=== PATIENT | male | born 1930 | race Caucasian/White ===

== ENCOUNTER 2016-07-22 17:54 | Emergency (ER) | payer MEDICARE, OTHER | END 2016-07-23 00:15 | disposition home or self-care (01) | LOC: ER 17:54 | DX: T83.011A Breakdown (mechanical) of indwelling urethral catheter, initial encounter (principal); N40.0 Benign prostatic hyperplasia without lower urinary tract symptoms; I10 Essential (primary) hypertension; I51.9 Heart disease, unspecified; Z85.038 Personal history of other malignant neoplasm of large intestine; Z79.82 Long term (current) use of aspirin; Z79.899 Other long term (current) drug therapy; Z88.0 Allergy status to penicillin | CPT/HCPCS: 99070; 99282; 99283 ==

== ENCOUNTER 2016-08-06 12:02 | Emergency (ER) | payer MEDICARE, OTHER | END 2016-08-06 13:49 | disposition home or self-care (01) | LOC: ER 12:02 | DX: R07.81 Pleurodynia (principal); S22.31XA Fracture of one rib, right side, initial encounter for closed fracture; W01.0XXA Fall on same level from slipping, tripping and stumbling without subsequent striking against object, initial encounter; Y92.019 Unspecified place in single-family (private) house as the place of occurrence of the external cause; Z88.0 Allergy status to penicillin; Z79.899 Other long term (current) drug therapy; Z79.82 Long term (current) use of aspirin | CPT/HCPCS: 71250; 99283; 99283-25 ==